=== PATIENT | male | born 1970 | race Caucasian/White ===

== ENCOUNTER 2020-09-04 05:51 | Day surgery (SDC) | payer OTHER ==
[~2020-09-04 05:51] MED LIST: CEFAZOLIN 2 GM/D5W RTU 2 GM/50 ML RTUPB IV PRN; HEPARIN SOD (PORCINE) 5,000 UNIT/ML 1 ML VIAL SUBCUT PRN; LACTATED RINGERS 1000 ML IV PRN; LIDOCAINE 0.5% INJ-PF (5 MG/ML) 50 ML SDV SUBCUT PRN
[2020-09-04] MEDS ORDERED: CEFAZOLIN 2 GM/D5W RTU 2 GM/50 ML RTUPB IV ONE (06:12)
[2020-09-04] MEDS ORDERED: HEPARIN SOD (PORCINE) 5,000 UNIT/ML 1 ML VIAL ONE ×2 (06:36→17:37)
[2020-09-04] MEDS ORDERED: HYDROMORPHONE HCL INJ/PF 2 MG/ML AMPULE ONE ×2 (06:42→13:12)
[2020-09-04] MEDS ORDERED: MIDAZOLAM 2 MG/2 ML INJ ONE (06:42)
[2020-09-04] MEDS ORDERED: FENTANYL CITRATE INJ/PF 250 MCG/5 ML AMPULE ONE (06:42)
[2020-09-04] MEDS ORDERED: EPHEDRINE SULFATE INJ 50 MG/1 ML AMPULE ONE (06:42)
[2020-09-04] MEDS ORDERED: SUGAMMADEX SODIUM 200 MG/2 ML SDV IV ONE (06:42)
[2020-09-04] MEDS ORDERED: PROPOFOL INJ 200 MG/20 ML VIAL IV ONE (06:42)
[2020-09-04] MEDS ORDERED: LIDOCAINE 2% INJ (20 MG/ML) 20 ML MDV ONE (06:43)
[2020-09-04] MEDS ORDERED: BUPIVACAINE HCL 0.25 % INJ/PF (2.5 MG/1 ML) 30 ML VIAL ONE (07:09)
[2020-09-04 07:58] LABS: HEMATOCRIT 40.1 % (37.9-51.0); HEMOGLOBIN 13.6 g/dL (13.5-17.0); MEAN CORPUSCULAR HEMOGLOBIN 29.5 pg (27.0-33.4); MEAN CORPUSCULAR VOLUME 87 fl (80-97); PLATELET COUNT 245 10^3/uL (150-450); RED BLOOD COUNT 4.63 10^6/uL (4.35-5.55); RED CELL DISTRIBUTION WIDTH 13.7 % (11.5-14.0); WHITE BLOOD COUNT 9.2 10^3/uL (4.0-10.5)
[2020-09-04 08:25] LABS: ANION GAP 9 (5-19); BLOOD UREA NITROGEN 25 mg/dL (7-20); CARBON DIOXIDE 25 mmol/L (22-30); CHLORIDE 105 mmol/L (98-107); GLUCOSE 88 mg/dL (75-110); POTASSIUM 4.2 mmol/L (3.6-5.0)
--- NOTE | 2020-09-04 09:31 | EKG REPORT ---
SEVERITY:- NORMAL ECG - SINUS RHYTHM : Confirmed by: Ervin Downey MD 04-Sep-2020 09:30:31
[2020-09-04] MEDS ORDERED: FENTANYL CITRATE INJ/PF 100 MCG/2 ML AMPUL IV PRN ×3 (09:38)
[2020-09-04] MEDS ORDERED: DIPHENHYDRAMINE HCL 50 MG/ML VIAL IV PRN (09:38)
[2020-09-04] MEDS ORDERED: MEPERIDINE HCL/PF INJ 25 MG/1 ML DISP.SYRIN IV PRN (09:38)
[2020-09-04] MEDS ORDERED: OXYCODONE-ACETAMINOPHEN 5-325 MG TABLET PO PRN ×2 (09:38)
[2020-09-04] MEDS ORDERED: MORPHINE SULFATE 10 MG/ML INJ IV PRN ×2 (09:38→12:58)
[2020-09-04] MEDS ORDERED: PROMETHAZINE HCL INJ 25 MG/1 ML VIAL IV PRN ×2 (09:38)
[2020-09-04] MEDS ORDERED: RINGERS SOLUTION,LACTATED 1,000 ML IV PRN (12:51)
[2020-09-04] MEDS ORDERED: ONDANSETRON HCL INJ/PF 4 MG/2 ML SDV IV PRN (12:51)
[2020-09-04] MEDS ORDERED: ACETAMINOPHEN 325 MG TABLET PO PRN (12:51)
[2020-09-04] MEDS ORDERED: OXYCODONE HCL IR 5 MG TABLET PO PRN (12:57)
[2020-09-04] MEDS ORDERED: DIPHENHYDRAMINE HCL 25 MG CAPSULE PO PRN (12:59)
[2020-09-04] MEDS: HYDROMORPHONE HCL INJ/PF 2 MG/ML AMPULE IV PRN ×3 (13:05→13:36)
[2020-09-04] MEDS ORDERED: ACETAMINOPHEN 1,000 MG/100 ML RTUPB IV ONE (13:24)
[2020-09-04] MEDS ORDERED: KETOROLAC TROMETHAMINE INJ/PF 30 MG/1 ML SDV ONE (13:24)
[2020-09-04] MEDS ORDERED: KETOROLAC TROMETHAMINE INJ/PF 30 MG/1 ML SDV IV ONE (13:28)
[2020-09-04] MEDS ORDERED: HYDROMORPHONE HCL INJ/PF 2 MG/ML AMPULE IV ONE (13:30)
[2020-09-04] MEDS ORDERED: MIDAZOLAM 2 MG/2 ML INJ IV PRN (13:32)
[2020-09-04] MEDS: HEPARIN SOD (PORCINE) 5,000 UNIT/ML 1 ML VIAL SUBCUT SCH ×2 (14:00→22:27)
[2020-09-04] MEDS: OXYCODONE HCL IR 5 MG TABLET PO PRN ×2 (14:45→19:11)
[2020-09-04] MEDS ORDERED: OXYCODONE HCL IR 5 MG TABLET ONE (15:06)
--- NOTE | 2020-09-04 15:59 | Operative Report ---
Operative Report DATE OF SURGERY: 09/04/20 Operative Report: Pre-operative Diagnosis: C61 Malignant Neoplasm of the Prostate Post-operative Diagnosis: Same as above Procedure: 1. Robotic-assisted laparoscopic radical prostatectomy 2. Bilateral pelvic lymphadenectomy 3. Incisional blocks for post-operative pain relief Primary Surgeon: Marko Shaikh M.D. Secondary Surgeon: Cheyenne Nassar M.D. Operative Findings: No evidence of obvious cancer extension, lymphadenopathy or metastatic disease Specimens: 1. Right pelvic lymph nodes 2. Left pelvic lymph nodes 3. Prostate, seminal vesicles, and ampullary vas deferens EBL: 250 mL Anesthesia: GETA, incisional blocks for post-operative pain relief Drains/tubes: 18 Fr 2-way aguero catheter Complications: None Condition on Transfer: Stable Indications for procedure: This is a 49 year-old male who has cancer of the prostate with a Vitaliy score of 7. After discussion of the risks, benefits and alternatives to the procedure including but not limited to urinary incontinence, impotence, bleeding, infection, injury to adjacent structures or organs systems, pain, recurrence, need for adjuvant treatment, rectal injury, ileus, small bowel obstruction, IL, CVA, DVT, PE and the patient elected to proceed with the above procedure. Description of Procedure: After satisfactory induction of general endotracheal anesthesia, the patient was placed in the dorsal lithotomy position and prepped and draped in the normal sterile fashion for prostatectomy. A pre-operative timeout was performed; the correct patient, site and procedure were identified. Pre-operative antibiotics with Ancef 2 grams were given within 30 minutes of the start time of the case, 5000 Units of subcutaneous heparin were administered in pre-operative holding, SCDs were on and functioning throughout the case. All pressure points were padded, all fire hazards were identified. First, a Verses needle was passed into the abdomen in the midline 2 cm superior to the umbilicus and the drop test was positive for intra-abdominal placement without injury to bowel, blood vessels and organs. The abdomen was then insufflated to 15 mm Hg pressure with an opening pressure of less than 6 mm Hg. The robotic trocars were then placed. The camera port was placed just above the umbilicus, 17 cm superior to the pubic symphysis. Two 8 mm ports were placed 8 cm from the midline at the upper portion of the umbilicus. A fourth 8 mm port was then placed additional 8 cm lateral to the left-hand port. A 12 mm political science research assistant port was then placed in the right lower abdomen 8 cm below the right-hand port. A 5 mm port was then placed just cephalad and medial to the political science research assistant port for irrigation and suction. The da Raquel robot was then docked to the patient and th e table then maneuvered into the steep Trendelenburg position of 28 degrees. The 0-degree camera lens was placed in the third arm. Monopolar scissors were placed in the right hand with a fenestrated bipolar in the left hand, and a Pro-Grasp forceps in the 4th arm. We then proceeded with radical prostatectomy. Attention was turned to the left side and because of some adhesions of the colon to the left pelvic sidewall these adhesions were taken down sharply. An incision was then made in the peritoneum through and lateral to the right median umbilical ligament and extended down to just lateral to the right inguinal ring. A small right inguinal hernia was noted at this time and this was avoided throughout the rest of the dissection. A similar incision was then made lateral to the left medial umbilical ligament and carried down to the symphysis. Then attention was turned to dropping the bladder and the medial umbilical ligaments, which were transected below the umbilicus. Then, the retro-pubic space was entered sharply with cautery. The fat overlying the prostate was removed and passed off for specimen. Next, the endopelvic fascia was opened on both sides of the prostate sharply and carried down to the apex of the prostate. A 2-0 V-Loc suture was then used as a DVC obstructing stitch and anchored to the posterior pubic symphysis. Attention was then turned to the bladder neck where the bladder neck was incised beginning in the midline and carried laterally to drop the bladder from the base of prostate. The urethra was then identified and transected in the midline and the catheter was pulled out to be used for traction. The prostate and the bladder neck posteriorly were incised and the seminal vesicles were identified on both sides along with the ampullae of the vas deferens. The ampullae of the vas deferens were individually cauterized, transected and used for traction. The seminal vesicles were then dissected free sharply and lifted superiorly exposing the pre-rectal fat plane. This plane was developed to identify the pedicles on both sides of the prostate which were taken down with Hem-o-lock clips and sharp dissection. The Veil of Aphrodite was identified bilaterally and sharply dissected away from the prostate and displaced laterally so as to avoid injury to the jodee-prostatic nerves--on the left side the nerve was adherent to the p rostatic capsule and so, to avoid violation of the patient's cancer, the left nerve was resected with the prostate. Next, the dissection was carried all the way to the apex of the prostate on both sides. The dorsal venous complex was then transected and the urethra identified. The apex of the prostate was identified and the urethra was transected distal to the apex of the prostate. The rectourethralis musculature was then incised and the prostate was freed. The prostate was then placed in a specimen bag and moved to the side of the field. No significant bleeding was appreciated this time. Next, a 2-0 V-loc Duke stitch was placed in the [place]villiers fascia and used to re-approximate the bladder neck to the urethral stump. The anastomosis of the bladder neck and urethra was accomplished with 3-0 V-loc suture in the double- armed fashion of Jose Davis. The anastomosis began by placing the sutures in the midline of the bladder posteriorly and then these were passed through the respective positions in the urethra starting posteriorly and then progressing anteriorly until a circumferential closure was achieved. Once the sutures were cinched down and tied an 18 [place] aguero catheter was placed without difficulty and the balloon was inflated with 10 mL of sterile water. This was then placed to a gravity bag and noted to be draining well. Next, a leak test was performed with 300 mL of normal saline and this demonstrated no evidence of an anastomotic leak. The jodee-prostatic gutters were then suctioned ensure there was no active bleeding. The suture on the specimen bag was then passed out through the camera port. Next, the lymph node dissection was begun by incising the peritoneum lateral to the medial umbilical ligament on the right side and carried down to the symphysi s. The node bearing tissue overlying the external iliac artery and vein as well as the obturator fossa was dissected free and the lymphatic channels were sealed with bipolar cautery and 5 mm metal clips. The obturator nerve was visualized bilaterally and kept away from the dissection. Bleeding points were fulgurated as they occurred. The left external iliac artery was identified and the node bearing tissue overlying the artery and vein as well as the obturator fossa was removed. These nodes were then passed off the field. The abdomen was re- inspected and it was noted that there was no evidence of active bleeding nor organ injury. The robot was undocked and the ports were removed under direct vision. The patient was then placed in the supine position. The midline port site was then incised to allow removal of the specimen bag. The rectus fascia was closed with 0-Vicryl running sutures. The incisions were then sealed with skin glue and running 4-0 monocryl subcuticular sutures. This concluded the procedure and the patient was cleaned off, awoken from anesthesia and returned to PACU in stable condition having tolerated the entirety of the case without complication. Sponge, needle and instrument counts were correct x2. PREOPERATIVE DIAGNOSIS: C61 Malignant Neoplasm of the Prostate POSTOPERATIVE DIAGNOSIS: C61 Malignant Neoplasm of the Prostate OPERATION: see dictation SURGEON: MARKO SHAIKH 1ST HERPETOLOGIST: CHEYENNE NASSAR ANESTHESIA: GA TISSUE REMOVED OR ALTERED: see dictation COMPLICATIONS: None ESTIMATED BLOOD LOSS: 250 mL INTRAOPERATIVE FINDINGS: see dictation PROCEDURE: see dictation
[2020-09-04] MEDS ORDERED: SUCCINYLCHOLINE CHLORIDE INJ 200 MG/10 ML VIAL ONE (16:40)
[2020-09-04] MEDS ORDERED: METOCLOPRAMIDE HCL INJ/PF 10 MG/2 ML SDV ONE (16:40)
[2020-09-04] MEDS ORDERED: ONDANSETRON HCL INJ/PF 4 MG/2 ML SDV ONE (16:40)
[2020-09-04] MEDS ORDERED: DEXAMETHASONE SOD PHOSPHATE INJ 4 MG/1 ML VIAL ONE (16:40)
[2020-09-04] MEDS ORDERED: KETOROLAC TROMETHAMINE 60 MG/2 ML SDV ONE (16:40)
[2020-09-04] MEDS ORDERED: ROCURONIUM BROMIDE INJ 50 MG/5 ML VIAL IV ONE (16:40)
[2020-09-04] MEDS ORDERED: MORPHINE SULFATE 10 MG/ML INJ ONE (17:36)
[2020-09-04] MEDS: MORPHINE SULFATE 10 MG/ML INJ IV PRN ×2 (17:45→22:26)
[2020-09-04] MEDS: DOCUSATE SODIUM 100 MG CAPSULE PO SCH (19:11)
[2020-09-05] MEDS: OXYCODONE HCL IR 5 MG TABLET PO PRN ×3 (00:04→09:20)
[2020-09-05] MEDS: MORPHINE SULFATE 10 MG/ML INJ IV PRN ×2 (04:01→12:45)
[2020-09-05] MEDS: HEPARIN SOD (PORCINE) 5,000 UNIT/ML 1 ML VIAL SUBCUT SCH ×2 (05:29→14:06)
[2020-09-05 06:40] LABS: HEMATOCRIT 35.2 % (37.9-51.0); HEMOGLOBIN 11.7 g/dL (13.5-17.0); MEAN CORPUSCULAR HGB CONC 33.3 g/dL (32.0-36.0); MEAN CORPUSCULAR VOLUME 87 fl (80-97); PLATELET COUNT 222 10^3/uL (150-450); RED BLOOD COUNT 4.04 10^6/uL (4.35-5.55); RED CELL DISTRIBUTION WIDTH 13.9 % (11.5-14.0); WHITE BLOOD COUNT 11.2 10^3/uL (4.0-10.5)
[2020-09-05 07:05] LABS: ANION GAP 5 (5-19); BLOOD UREA NITROGEN 18 mg/dL (7-20); CALCIUM 8.7 mg/dL (8.4-10.2); CARBON DIOXIDE 29 mmol/L (22-30); CHLORIDE 102 mmol/L (98-107); GLUCOSE 90 mg/dL (75-110); POTASSIUM 4.3 mmol/L (3.6-5.0)
--- NOTE | 2020-09-05 07:34 | PDOC PROGRESS REPORT ---
Subjective Date:: 09/05/20 Subjective:: No acute changes/events. Pain well controlled, no N/V. Reason For Visit: C61 MALIGNANT NEOPLASM OF PROSTATE Physical Exam Vital Signs: Temp Pulse Resp BP Pulse Ox 98.8 F 73 18 102/49 L 97 09/05/20 05:15 09/05/20 05:15 09/05/20 05:15 09/05/20 05:15 09/05/20 05:15 Intake & Output 09/04/20 09/05/20 09/06/20 06:59 06:59 06:59 Intake Total 0 3620 Output Total 1900 Balance 0 1720 Weight 92.99 kg 97 kg General appearance: PRESENT: no acute distress Head exam: PRESENT: atraumatic Ear exam: PRESENT: normal external ear exam Mouth exam: PRESENT: moist Neck exam: PRESENT: full ROM Pulses: PRESENT: normal radial pulses Vascular exam: PRESENT: normal capillary refill GI/Abdominal exam: PRESENT: other - Soft, aTTP over incisions, ND, no r/ g/peritoneal signs, inc c/d/i Rectal exam: PRESENT: deferred Gentrourinary exam: PRESENT: indwelling catheter - Aguero clear, yellow, secured Extremities exam: PRESENT: other - No c/c/e Neurological exam: PRESENT: alert Psychiatric exam: PRESENT: appropriate affect Skin exam: PRESENT: other - no rashes Results Laboratory Results: 09/05/20 06:32 09/05/20 06:32 09/04/20 09/04/20 09/05/20 07:37 07:37 06:32 WBC 9.2 11.2 H RBC 4.63 4.04 L Hgb 13.6 11.7 L Hct 40.1 35.2 L MCV 87 87 MCH 29.5 29.0 MCHC 34.0 33.3 RDW 13.7 13.9 Plt Count 245 222 Sodium 138.5 Potassium 4.2 Chloride 105 Carbon Dioxide 25 Anion Gap 9 BUN 25 H Creatinine 1.07 Est GFR ( Amer) > 60 Glucose 88 Calcium 9.0 09/05/20 06:32 WBC RBC Hgb Hct MCV MCH MCHC RDW Plt Count Sodium 135.8 L Potassium 4.3 Chloride 102 Carbon Dioxide 29 Anion Gap 5 BUN 18 Creatinine 1.01 Est GFR ( Amer) > 60 Glucose 90 Calcium 8.7 Assessment & Plan - Diagnosis (1) Prostate cancer Is this a current diagnosis for this admission?: Yes Plan: - Pain meds as written - ICS, pulm toilet, early ambulation - ADAT to regular at lunch - Keep aguero in place at d/c - SQ, SCD's - D/c home today after lunch if continues to do well - Time Anticipated Discharge Disposition: Home, Self Care Anticipated Discharge Timeframe: within 24 hours Time Spent: 30 to 50 Minutes Critical Time spent with patient: Less than 15 minutes Medications reviewed and adjusted accordingly: Yes Disposition: Home - Inpatient Certification Medical Necessity: Need for Pain Control, Other - plan for d/c home today Post Hospital Care: D/C or Transfer Summary
[2020-09-05] MEDS: DOCUSATE SODIUM 100 MG CAPSULE PO SCH (09:20)
[2020-09-05 15:38] VITALS: BP 116/70
== END 2020-09-05 17:05 | disposition home health service (06) ==
LOC: OROUT 05:51 → 4S 18:32 → OROUT 09-05 17:05
PROVIDERS: ATTEND Urology
DX: C61 Malignant neoplasm of prostate (principal); K40.90 Unilateral inguinal hernia, without obstruction or gangrene, not specified as recurrent; Z20.828 Contact with and (suspected) exposure to other viral communicable diseases; E78.5 Hyperlipidemia, unspecified; G47.30 Sleep apnea, unspecified; Z79.899 Other long term (current) drug therapy; F17.220 Nicotine dependence, chewing tobacco, uncomplicated; F43.10 Post-traumatic stress disorder, unspecified; Z98.52 Vasectomy status
CPT/HCPCS: 36415; 85027; 87635; 80048; 88305 ×2; 93005; 94799; 93010; 00865; 55866; 38571; C1758 ×5; J2250; J3490 ×6; J1644 ×2; J1100; J1885 ×2; J3010; J2765; J2270 ×2; J1170; J0330; J2405; J2704; J0690; J0131; C9803; 865; 88309; 88342